=== PATIENT | female | born 1985 | race Two or more races ===

== ENCOUNTER 2019-01-05 21:45 | Emergency (ER) | payer MEDICAID ==
[~2019-01-05] VITALS: Ht 165.1 cm; Wt 68.9 kg
[~2019-01-05 21:45] MED LIST: NORCO 5-325 TA1 EACH ORAL
[2019-01-05] MEDS ORDERED: AMOXICILLI250 MG/5 M ORAL (21:54)
[2019-01-05 21:56] VITALS: BP 124/76
--- NOTE | 2019-01-05 21:57 | NUR ---
ED Nurse Note: Patient walked in to ER from home coughing with white and thick mucus and sore throat 11/26 for 2 months. pt aao x4 and ambulatory. skin clean and intact. pt currently coughing consistantly. pt stated "I cannot even sleep because of this non stop coughing."
--- NOTE | 2019-01-05 22:23 | Emergency Room Report ---
History of Present Illness General Chief Complaint: Upper Respiratory Illness Source: Patient Present Illness Allergies: Coded Allergies: No Known Allergies (Unverified , 07/16/13) Patient History Past Medical History: see triage record, old chart reviewed Past Surgical History: none Pertinent Family History: none Social History: Denies: smoking Last Menstrual Period: 12/24/18 Now: No Immunizations: other Reviewed Nursing Documentation: PMH: Agreed; PSxH: Agreed Nursing Documentation-PMH Past Medical History: No Stated History Hx Cardiac Problems: No - hypothyroidism Review of Systems Eye: Denies: eye pain, blurred vision ENT: Denies: ear pain, nose congestion, throat swelling Respiratory: Reports: cough; Denies: shortness of breath Cardiovascular: Denies: chest pain, palpitations Gastrointestinal: Denies: abdominal pain, diarrhea, nausea, vomiting Musculoskeletal: Denies: back pain, joint pain Skin: Denies: rash Neurological: Denies: headache, numbness Endocrine: Denies: increased thirst, increased urine Hematologic/Lymphatic: Denies: easy bruising All Other Systems: negative except mentioned in HPI Physical Exam Vital Signs Date Time Temp Pulse Resp B/P (MAP) Pulse Ox O2 Delivery O2 Flow Rate FiO2 01/05/19 21:46 98.1 95 18 96 01/05/19 21:56 124/76 Room Air vitals normal Sp02 EP Interpretation: reviewed, normal General Appearance: well appearing, no apparent distress, alert Head: normocephalic, atraumatic Eyes: bilateral eye PERRL, bilateral eye EOMI ENT: hearing grossly normal, normal pharynx Neck: full range of motion, supple, no meningismus Respiratory: chest non-tender, lungs clear, normal breath sounds, other - coughing with inspiration Cardiovascular #1: regular rate, rhythm, no murmur Gastrointestinal: normal bowel sounds, non tender, no mass, no organomegaly, no bruit, non-distended Musculoskeletal: back normal, gait/station normal, normal range of motion Neurologic: alert, oriented x3 Psychiatric: mood/affect normal Skin: warm/dry Medical Decision Making Diagnostic Impression: Primary Impression: Cough in adult ER Course Patient presents with a cough. Has been ongoing for 2 months. This may be cough ran asthma. No evidence of pneumonia but may be atypical pneumonia. We' ll discharge home with a different antibiotics and inhaler. No evidence of any sepsis, ACS, PE, dissection to name a few. Last Vital Signs Date Time Temp Pulse Resp B/P (MAP) Pulse Ox O2 Delivery O2 Flow Rate FiO2 01/05/19 21:56 95 18 Room Air 01/05/19 21:56 98.1 124/76 96 Status: unchanged Disposition: HOME, SELF-CARE Condition: Stable Scripts Azithromycin* (ZITHROMAX*) 250 Mg Tablet 250 MG ORAL DAILY, #6 TAB 0 Refills Take two tables once daily for 1 day, then one tablet once daily for 4 days. Prov: Alexander Schwab MD 01/05/19 Albuterol Sulfate* (ALBUTEROL SULFATE MDI*) 8.5 Gm Hfa.aer.ad 2 PUFF INH Q4H PRN for cough/wheezing, #1 EA 0 Refills Prov: Alexander Schwab MD 01/05/19 Additional Instructions: Follow-up with your doctor in 7 days. If not better, may need a referral to see a unit operator. Return if worse. Alexander Schwab MD January 05, 2019 22:23
[2019-01-05] MEDS ORDERED: ALBUTEROL SULF8.5 GM INH (22:25)
[2019-01-05] MEDS ORDERED: ZITHROMAX250 MG ORAL (22:25)
[2019-01-05] MEDS ORDERED: Albuterol ud Inhalation HHN ONE (22:30)
--- NOTE | 2019-01-05 22:30 | NUR ---
ED Nurse Note: pt getting breathing treatment at the chair.
[2019-01-05 22:42] VITALS: BP 133/64
--- NOTE | 2019-01-05 22:43 | NUR ---
ER DISCHARGE NOTE: Patient is cleared to be discharged per ERMD after breathing treatment, pt is aox4, on room air, with stable vital signs. pt was given dc and prescription instructions, pt was able to verbalize understanding, pt id band removed. pt is able to ambulate with steady gait. pt took all belongings.
== END 2019-01-05 22:44 | disposition home or self-care (01) ==
LOC: EMR 22:23
DX: R05 Cough (principal); E03.9 Hypothyroidism, unspecified
CPT/HCPCS: 94640; 94664; 99284